=== PATIENT | male | born 1955 | race Caucasian/White ===

== ENCOUNTER 2017-06-28 22:11 | Emergency (ER) | payer MEDICARE ==
[~2017-06-28] VITALS: Ht 149.9 cm; Wt 90.9 kg
[~2017-06-28 22:11] MED LIST: AMIO200T PO; BACL10TA PO; GABA-502 PO; METO50TA3 PO; WARF4TAB6 PO
--- NOTE | 2017-06-28 22:31 | ED.REPORT ---
HPI-Chest Pain 40 and Over Date of Service Jun 28, 2017 ED Provider: Linus Loja MD The pt is a 61 y/o female w/ a hx of HTN and paroxysmal atrial fibrillation presenting to the ED via EMS due a cardiac dysrhythmia. The pt reports going into A-fib after taking a dose of ciprofloxacin for a recent UTI and then taking Metoprolol which decreased his HR to around 45. Denies chest pain. Nursing Notes Stated Complaint: CARDIAC ARRHYTHMIA Chief Complaint: Dysrhythmia/Cardiac Nursing Notes Reviewed: Yes Allergies: Coded Allergies: No Known Allergies (Verified , 06/28/17) Scheduled Amiodarone (Amiodarone) 200 Mg Tablet 200 MG PO DAILY Baclofen (Baclofen) 10 Mg Tablet 10 MG PO BID Cefuroxime Axetil (Cefuroxime) 500 Mg Tablet 500 MG PO BID Gabapentin (Gabapentin) 300 Mg Capsule 300 MG PO BID Metoprolol Tartrate (Metoprolol Tartrate) 50 Mg Tablet 25 MG PO q6-8 hours Warfarin Sodium (Warfarin Sodium) 4 Mg Tablet 4 MG PO DAILY General Time Seen by MD: 22:26 Chief Complaint Other (Cardiac dysrhythmia) Hx Obtained From: Patient, EMS Arrived By: Ambulance Sudden in Onset?: Yes Onset Occurred: Just prior to arrival Symptom Duration: Since onset Recent Healthcare: No recent hospitalization, Recent doctor visit Similar Sx Previous: Yes Past Medical History Past Medical History T4 paraplegic paroxysmal atrial fibrillation Reports: Hypertension Past Surgical History knee surgery Smoking History Former Smoker Social History Alcohol Use: Denies alcohol use Drug Use: Denies drug use Ambulatory Status Independent Review of Systems Cardiovascular: Denies: Chest pain Complete sys rev & neg: except as marked. Physical Exam Initial Vital Signs Vital Signs (First) Date Time Temp Pulse Resp B/P Pulse Ox O2 Delivery O2 Flow Rate FiO2 06/28/17 22:36 36.5 54 15 80/59 99 Room Air Initial VS: Reviewed Head / Eyes: Atraumatic, Normocephalic, PERRL ENT: Mucous membranes moist, Conjunctiva normal, No scleral icterus Neck: Supple, Non-tender, Full range of motion Skin: Warm, Dry, No cyanosis Neurologic: Alert, Oriented, Nonfocal Psychiatric: Mood/affect normal, Behavior normal, Normal thought content General/Constitutional: Awake, Alert Respiratory / Chest: Atraumatic, Breath sounds NL, Breath sounds = bilat Cardiovascular: Regular rhythm, Heart sounds NL Heart Rate / Rhythm: Positive: Bradycardia 1+ pitting edema bilaterally Abdomen: Atraumatic, Soft, Non-tender Interpretation & Diagnostics Lab Results Interpretation Result Diagram: 06/28/17229906/28/172299 Test 06/28/17 23:00 06/29/17 01:00 White Blood Count 7.7th/mm3 (3.8-10.1) Red Blood Count 5.09mil/mm3 (4.40-5.80) Hemoglobin 16.2g/dL (13.8-17.2) Hematocrit 47.8% (41.0-50.0) Mean Corpuscular Volume 93.9fL (81-100) Mean Corpuscular Hemoglobin 31.8pg (27.0-35.0) Mean Corpuscular Hemoglobin Concent 33.9% (32.0-37.0) Red Cell Distribution Width 15.2% (12.3-15.4) Platelet Count 132bil/L (150-400) Neutrophils (%) (Auto) 76.4% (40-74) Lymphocytes (%) (Auto) 9.2% (14-46) Monocytes (%) (Auto) 10.5% (4-12) Eosinophils (%) (Auto) 2.7% (0-5) Basophils (%) (Auto) 0.9% (0-3) Prothrombin Time 20.8sec (8.1-12.5) Prothromb Time International Ratio 1.92ratio Sodium Level 138mEq/L (134-144) Potassium Level 3.9mEq/L (3.5-5.2) Chloride Level 101mEq/L (97-108) Carbon Dioxide Level 21mmol/L (18-29) Blood Urea Nitrogen 15mg/dL (8-27) Creatinine 0.55mg/dL (0.76-1.27) Estimat Glomerular Filtration Rate 160mL/min (>59) Glucose Level 86mg/dL (60-99) Calcium Level 8.7mg/dL (8.5-10.1) Magnesium Level 2.1mg/dL (1.6-2.6) Total Bilirubin 1.2mg/dL (0.0-1.2) Aspartate Amino Transf (AST/SGOT) 30U/L (0-50) Alanine Aminotransferase (ALT/SGPT) 28U/L (0-44) Alkaline Phosphatase 81U/L (25-160) Troponin T 0.010ug/L (0.0-0.011) Total Protein 6.4g/dL (6.4-8.4) Albumin 3.7g/dL (3.4-5.0) Hold Urine Received (Received) ECG Interpretation ECG Interpretation: Rate 54 NSR Repolarization abnormal suggests ischemia, lateral leads Non-specific ST and T wave changes in the lateral leads Time: 22:32 Interpreted by: ED physician X-Ray Chest Interpretation Chest Xray Interpretation: Impression: No acute findings. View: Portable, 1 view Interpretation / Wet Read by: Wet read ED physician Re-Eval/Medical Decision Med Decision/Clinical Course 61-year-old male with atrial fibrillation that he feels started after starting ciprofloxacin for UTI. He took extra metoprolol as directed to reduce his rate. When he converted however he was bradycardic and hypotensive. He was given saline here with improvement of his blood pressure. His ciprofloxacin was stopped and he was given Rocephin and cefuroxime for treatment of his UTI. Will follow up as planned with his primary doctor. He will return to the emergency room if he has return of A. fib. His INR was also a little low and he will follow-up with his primary doctor for that. Source of Hx: Old records Time of Eval: 00:03 Re-Evaluation/Progress Note: Pt rechecked. Informed pt of plan for treatment. Pt understands and agrees with plan for treatment. F/U instructions and RTER warnings given. All questions addressed. Counseled Regarding: Diagnosis, Lab results, Need for follow-up, When/why to return to ED Discharge & Departure Primary Impression: ATRIAL FIBRILLATION Additional Impression: Urinary tract infection Urinary tract infection type: acute cystitis Hematuria presence: without hematuria Qualified Code: N30.00 - Acute cystitis without hematuria Disposition: Home Discharge Condition All VS Reviewed: Yes Condition: Stable Patient Instructions: A-fib (Atrial Fibrillation) (ED) Additional Instructions: Stop the ciprofloxacin. You were given Rocephin in the emergency room to be followed by cefuroxime 500 mg twice a day for 5 more days. Your INR is a little bit low at 1.92. That should be rechecked on Saturday or Saturday and adjustments made if necessary to your warfarin dose. Referrals: aTra Deluna PA-C (PCP) Scribe Attestation Portions of this note were transcribed by Rusty Bolton. I, Dr. Loja personally performed the history, physical exam and medical decision-making; I reviewed and confirmed the accuracy of the information in the transcribed note. copies to: Tara Deluna PA-C, Howard L MD Jun 28, 2017 22:31 Rusty Bolton Jun 28, 2017 22:43
[2017-06-28 22:36] VITALS: BP 80/59; PULSE 54; RESP 15; O2SAT 99
[2017-06-28] MEDS ORDERED: 0.9% Sodium Chloride 500 ML IV ONE (22:40)
[2017-06-28 23:06] LABS: Mean Corpuscular Hemoglobin 31.8 pg (27.0-35.0); Mean Corpuscular Volume 93.9 fL (81-100)
[2017-06-28 23:07] LABS: BASOPHILS % (AUTO) 0.9 % (0-3); EOSINOPHILS % (AUTO) 2.7 % (0-5); MONOCYTES % (AUTO) 10.5 % (4-12); NEUTROPHILS % (AUTO) 76.4 % (40-74); Platelet Count 132 bil/L (150-400)
[2017-06-28 23:15] VITALS: BP 111/65; PULSE 54; RESP 12; O2SAT 97
[2017-06-28 23:25] LABS: INR 1.92 ratio
[2017-06-28 23:29] LABS: TROPONIN T 0.01 ug/L (0.0-0.011)
[2017-06-28 23:40] LABS: Magnesium 2.1 mg/dL (1.6-2.6)
[2017-06-29] MEDS ORDERED: cefTRIAXone Inj 2,000 MG in Dextrose 5% Minibag Plus 50 ML IV ONE (00:05)
[2017-06-29] MEDS ORDERED: CEFU500T61 PO (00:54)
[2017-06-29 01:30] VITALS: BP 152/64; PULSE 65; RESP 16; O2SAT 96
[2017-06-29 01:40] VITALS: BP_SYST 103; BP_SYST 152; BP_DIAS 64; BP_DIAS 72; PULSE 62; PULSE 65; RESP 16; RESP 18; O2SAT 96; O2SAT 97
[2017-06-29] MEDS ORDERED: Diltiazem 5 mg/mL 5 mL Inj IVPUSH ONE (02:05)
[2017-06-29 02:43] VITALS: BP 76/47; PULSE 106; RESP 17; O2SAT 95
[2017-06-29 03:00] VITALS: BP 108/67; PULSE 105; RESP 18; O2SAT 95
[2017-06-29] MEDS ORDERED: 0.9% Sodium Chloride 500 ML IV ONE (03:20)
--- NOTE | 2017-06-29 09:14 | DRSVH ---
PROCEDURE: X-RAY CHEST ONE VIEW, PORTABLE ([id number]) INDICATIONS: palpitations TECHNIQUE: One view of the chest was acquired. COMPARISON: [facility], CR, XR CHEST 2VW, 12/26/2015, 12:04. FINDINGS: Surgical changes and devices: None. Lungs and pleura: No pleural effusions or pneumothorax. Lungs are clear. Mediastinum: Mediastinal contours appear normal. Heart size is normal. Bones and chest wall: No suspicious bony lesions. Overlying soft tissues appear unremarkable. IMPRESSION: No acute pulmonary process. Dictated by: Melissa Lawson M.D. on 06/29/2017 at 9:12 Approved by: Melissa Lawson M.D. on 06/29/2017 at 9:12
== END 2017-06-29 04:31 | disposition home or self-care (01) ==
LOC: EDBD 22:11 → SED 22:11
DX: I48.91 Unspecified atrial fibrillation (principal); N30.00 Acute cystitis without hematuria; I10 Essential (primary) hypertension; Z87.891 Personal history of nicotine dependence; Z79.01 Long term (current) use of anticoagulants
CPT/HCPCS: 36415; 71010; 80053; 83735; 84484; 85025; 85610; 93005; 96365; 96375; 99285; J0696; J7040

== ENCOUNTER 2017-06-30 21:38 | Emergency (ER) | payer MEDICARE ==
[~2017-06-30] VITALS: Ht 181.6 cm; Wt 90.9 kg
[~2017-06-30 21:38] MED LIST changes: +CEFU500T61 PO
[2017-06-30 21:48] VITALS: BP 166/72; PULSE 35; RESP 20; O2SAT 96
--- NOTE | 2017-06-30 22:22 | ED.REPORT ---
HPI-General Illness Date of Service Jun 30, 2017 ED Provider: Linus Loja MD A 61 year old male on Coumadin and amiodarone with a history of atrial fibrillation, paraplegia, CHF, pneumonia, UTI and hypertension presents to the ED complaining of possible atrial fibrillation. The pt experienced five episodes of intermittent atrial fibrillation throughout the day, beginning in the morning and resolving spontaneously. He converted from his last episode at 19:00 but soon noticed intermittent bradycardia. The lowest heart rate that he recorded was 33 at 20:00, at which point he experienced lightheadedness and diaphoresis. He continued to experience this until deciding to come to the ED. The pt was seen in Urgent Care on 06/27/2017 for a UTI and prescribed Ciprofloxacin, but this prescription was changed to Cefuroxime in the ED the next day due to possible medication interactions. The pt's symptoms, including abdominal pain, urinary frequency and urinary urgency, did not resolve so he took another dose of Ciprofloxacin at 15:30 today. Nursing Notes Stated Complaint: POSSIBLE UTI,AFIB Chief Complaint: General Complaint Nursing Notes Reviewed: Yes Allergies: Coded Allergies: No Known Allergies (Verified , 06/28/17) Scheduled Amiodarone (Amiodarone) 200 Mg Tablet 200 MG PO DAILY Baclofen (Baclofen) 10 Mg Tablet 10 MG PO BID Cefuroxime Axetil (Cefuroxime) 500 Mg Tablet 500 MG PO BID Gabapentin (Gabapentin) 300 Mg Capsule 300 MG PO BID Metoprolol Tartrate (Metoprolol Tartrate) 50 Mg Tablet 25 MG PO q6-8 hours Sulfamethoxazole/Trimeth 800-160 mg (Bactrim DS) 1 Each Tablet 1 TABLET PO BID Warfarin Sodium (Warfarin Sodium) 4 Mg Tablet 4 MG PO DAILY General Time Seen by MD: 22:20 Chief Complaint Other (Possible atrial fibrillation) Hx Obtained From: Patient Arrived By: Walk-in Sudden in Onset?: Yes Onset Occurred: 9 - 12 hours ago Symptom Duration: Intermittent Recent Healthcare: No recent hospitalization, Recent doctor visit Similar Sx Previous: Yes Past Medical History Past Medical History T4 paraplegic paroxysmal atrial fibrillation CHF pneumonia urinary retention (self-cathing) UTI arthritis previous suicide attempt Reports: Hypertension Past Surgical History knee surgery bilateral ablation 2013 cardiac cath 2009 Smoking History Former Smoker (quit 1984) Social History Alcohol Use: "Social" Drug Use: Denies drug use Ambulatory Status Independent Review of Systems atrial fibrillation bradycardia Full Review of Systems Respiratory: Denies: Non-productive cough, Shortness of breath Cardiovascular: Denies: Chest pain GI: Reports: Abdominal pain, Denies: Vomiting Male: Reports Urinary frequency, Reports Urinary urgency, Denies Hematuria Musculoskeletal: Denies: Back pain, Neck pain Skin: Reports Diaphoresis, Denies Rash Neurologic: Reports: Lightheaded Complete sys rev & neg: except as marked. Physical Exam Vital Signs Vital Signs Date Time Temp Pulse Resp B/P Pulse Ox O2 Delivery O2 Flow Rate FiO2 07/01/17 02:53 80 19 129/68 98 Room Air 06/30/17 21:48 36.8 35 20 166/72 96 Room Air Initial VS: Reviewed, Vital signs normal General/Constitutional: Awake, Alert Head / Eyes: Atraumatic, Normocephalic, PERRL, EOMI ENT: Atraumatic, Airway patent, Mucous membranes moist Neck: Atraumatic, Supple, Full range of motion Respiratory / Chest: Atraumatic, Breath sounds NL, Breath sounds = bilat, No respiratory distress Cardiovascular: Heart rate NL, Heart sounds NL frequent premature atrial contractions Abdomen: Atraumatic, Soft, Non-tender Back: Atraumatic, Non-tender Upper Extremities Upper Extremity / MS: Atraumatic, Vascular intact Lower Extremity / Pelvis / MS: Atraumatic, Vascular intact Skin: Atraumatic, Color NL, No rash, Warm, Dry Neurologic: Oriented X3, Speech NL Psychiatric: Affect NL, Mood NL Interpretation & Diagnostics Lab Results Interpretation Test 06/30/17 22:10 07/01/17 00:42 Hold Purple Top Tube Received (Received) Hold Blue Top Tube Received (Received) Hold Red Top Tube Received (Received) Hold [place] Top Tube Received (Received) Urine Color Dark yellow (YELLOW) Urine Appearance Clear (CLEAR,HAZY) Urine pH 5.5 (5.0-8.0) Urine Specific [place] 1.030 (1.003-1.035) Urine Protein Negativemg/dL (NEG,TRACE) Urine Glucose (UA) Negativemg/dL (NEGATIVE) Urine Ketones Tracemg/dL (NEGATIVE) Urine Occult Blood Moderate (NEGATIVE) Urine Nitrite Negative (NEGATIVE) Urine Bilirubin Negative (NEGATIVE) Urine Urobilinogen Normalmg/dL (NORMAL) Urine Leukocyte Esterase Trace (NEGATIVE) Urine RBC 11-50/hpf (0-2) Urine WBC 0-5/hpf (0-5) Urine Epithelial Cells Few/hpf (NONE-MOD) Urine Crystals None seen (NONE SEEN) Urine Bacteria Few/hpf (NONE-FEW) Urine Hyaline Casts None/lpf (NONE) Urine Granular Casts None seen (NONE SEEN) Urine Waxy Casts None seen (NONE SEEN) Urine Red Blood Cell Casts None seen (NONE SEEN) Urine White Blood Cell Casts None seen (NONE SEEN) Urine Mucus Present (None Seen) Urine Trichomonas None seen (NONE SEEN) Urine Yeast None (NONE SEEN) Urinalysis Comment None Urine Culture Reflexed Indicated ECG Interpretation ECG Interpretation: normal sinus rhythm with a rate of 61 atrial premature complexes nonspecific repol abnormality, lateral leads Time: 22:06 Interpreted by: ED physician Re-Eval/Medical Decision Med Decision/Clinical Course 61-year-old male who was seen twice previously for atrial arrhythmias. It appears that it's possible that the ciprofloxacin affected his amiodarone levels to the point where he had breakthrough arrhythmias. His ciprofloxacin had been stopped because of this but he didn't think that he was getting better so he restarted it. Tonight he has only atrial PACs in a bigeminal and trigeminal patterns. There's been no A. fib. His case was discussed with Dr. Bernard feels that watchful waiting should be the approach for the atrial arrhythmias. He is being discharged home on a new antibiotic. Follow-up with his primary doctor as needed. Source of Hx: Old records Time of Eval: 00:05 Patient Status: Condition improved Re-Evaluation/Progress Note: Pt rechecked, who is resting comfortably. Lab results are discussed. Time of Eval: 02:12 Patient Status: Condition improved Re-Evaluation/Progress Note: Pt rechecked, who is feeling significantly better. The diagnosis and plan for discharge are discussed. The pt understands and agrees with the plan. All questions are addressed at this time. Consultation : Referral / Consult Name: José Bernard MD Consulted With: Cardiology Call Returned at: 23:35 Recycle Driver: Agrees with eval, Agrees with plan Note: Spoke with Dr. Bernard, cardiology, regarding pt's case. Dr. Bernard agrees with the evaluation and plan. Counseled Regarding: Diagnosis, Lab results, Need for follow-up, When/why to return to ED Discharge & Departure Primary Impression: Atrial premature beats Additional Impression: Urinary tract infection Urinary tract infection type: catheter-associated UTI Indwelling urinary catheter type: unspecified Encounter type: subsequent encounter Qualified Code: T83.511D - Infection and inflammatory reaction due to indwelling urethral catheter, subsequent encounter Disposition: Home Discharge Condition All VS Reviewed: Yes Condition: Stable Additional Instructions: You have frequent premature atrial contractions, but no atrial fibrillation at this time. There is no bacteria growing from her previous culture, so I have no antibiotic sensitivity information. We will change to trimethoprim sulfamethoxazole ( Septra) for broader coverage. Do not take any more of the Cipro. Call me at [phone] between the hours of 9 PM and 6 AM the next couple nights if you have any questions or concerns. Referrals: Tara Deluna PA-C (PCP) Scribe Attestation Portions of this note were transcribed by Cristnia Moy. I, Dr. Loja personally performed the history, physical exam and medical decision-making; I reviewed and confirmed the accuracy of the information in the transcribed note. copies to: Tara Deluna PA-C, Howard L MD Jun 30, 2017 22:22 CRISTINA MOY Jun 30, 2017 22:36
[2017-07-01] MEDS ORDERED: TRIMETHOPRIM IV ONE (00:30)
[2017-07-01] MEDS ORDERED: [UNRECOGNIZED DRUG - OTHER] IV ONE (00:30)
[2017-07-01] MEDS ORDERED: SULFAMETHOXAZOLE IV ONE (00:30)
[2017-07-01] MEDS ORDERED: TRIMETHOPRIM SULFA IV ONE (00:36)
[2017-07-01] MEDS ORDERED: DEXTROSE 5% IV ONE (00:36)
[2017-07-01 00:52] LABS: APPEARANCE,URINE CLEAR (CLEAR,HAZY); COLOR,URINE DARK YELLOW (YELLOW); OCCULT BLOOD,URINE MODERATE (NEGATIVE); PH,URINE 5.5 (5.0-8.0); UROBILINOGEN,URINE NORMAL (NORMAL)
[2017-07-01 02:53] VITALS: BP 129/68; PULSE 80; RESP 19; O2SAT 98
[2017-07-01] MEDS ORDERED: SULF1TAB7 PO (03:10)
== END 2017-07-01 02:53 | disposition home or self-care (01) ==
LOC: SED 21:38
DX: I49.1 Atrial premature depolarization (principal); T83.511D Infection and inflammatory reaction due to indwelling urethral catheter, subsequent encounter; Y84.6 Urinary catheterization as the cause of abnormal reaction of the patient, or of later complication, without mention of misadventure at the time of the procedure; Y93.89 Activity, other specified; Y92.89 Other specified places as the place of occurrence of the external cause; Y99.8 Other external cause status; R42 Dizziness and giddiness; R61 Generalized hyperhidrosis; I11.0 Hypertensive heart disease with heart failure; I50.9 Heart failure, unspecified; I48.91 Unspecified atrial fibrillation; Z87.01 Personal history of pneumonia (recurrent); Z87.440 Personal history of urinary (tract) infections; Z91.5 Personal history of self-harm; Z95.5 Presence of coronary angioplasty implant and graft; Z98.890 Other specified postprocedural states; Z79.01 Long term (current) use of anticoagulants; Z87.891 Personal history of nicotine dependence